=== PATIENT | male | born 2000 | race African-American/Black ===

== ENCOUNTER 2021-11-22 09:10 | Emergency (ER) | payer OTHER ==
[~2021-11-22] VITALS: Ht 170.2 cm; Wt 50.0 kg
[2021-11-22] MEDS ORDERED: ACET-2247 PO (09:16)
[2021-11-22 10:10] VITALS: BP 118/56
[2021-11-22] MEDS ORDERED: AMOX1TAB16 PO (10:18)
== END 2021-11-22 10:59 | disposition home or self-care (01) ==
LOC: EMS 09:10
DX: K04.7 Periapical abscess without sinus (principal); Z79.899 Other long term (current) drug therapy
CPT/HCPCS: 99283; Z7502